=== PATIENT | male | born 1995 | race Caucasian/White ===

== ENCOUNTER 2016-10-21 23:38 | Emergency (ER) | payer OTHER ==
[2016-10-22] MEDS ORDERED: EPINEPHrine,Rac 2.25% NEB.SOL* 0.5 ML INH ONE (00:15)
--- NOTE | 2016-10-22 01:12 | ED ---
Laceration/Wound HPI - HPI Summary HPI Summary: Patient arrives with laceration to the right 5th finger MCP joint after cutting it on railing. Tetanus UTD. Patient notes minimal blood loss. Denies numbness or tingling. Patient has full ROM in finger, wrist and upper extremity. Denies fever or other illness. Patient denies previous injury to the area. - History of Current Complaint Stated Complaint: RIGHT PINKY LAC Time Seen by Provider: 10/22/16 00:09 Hx Obtained From: Patient Mechanism of Injury: Sharp/Blunt Trauma Onset/Duration: Sudden Onset Aggravating: Movement Alleviating: Compression Timing: Constant Onset Severity: Moderate Current Severity: Mild Pain Intensity: 0 Pain Scale Used: 0-10 Numeric - Allergy/Home Medications Allergies/Adverse Reactions: Allergies Allergy/AdvReac Type Severity Reaction Status Date / Time No Known Allergies Allergy Verified 12/24/13 14:04 PMH/Surg Hx/FS Hx/Imm Hx Previously Healthy: Yes Endocrine/Hematology History: Denies: Hx Diabetes Cardiovascular History: Denies: Hx Hypertension, Hx Pacemaker/ICD History: Denies: Hx Renal Disease Sensory History: Denies: Hx Hearing Aid Psychiatric History: Denies: Hx Panic Disorder - Surgical History Surgery Procedure, Year, and Place: 2 HERNIA ( AGE 7); MENISCUS RIGHT KNEE Infectious Disease History: No Infectious Disease History: Denies: Traveled Outside the [place] in Last 30 Days - Social History Occupation: Student Lives: Alone Alcohol Use: Occasionally Substance Use Type: Reports: Marijuana Smoking Status (MU): Never Smoked Tobacco Review of Systems Constitutional: Negative Eyes: Negative Cardiovascular: Negative Respiratory: Negative Positive: Arthralgia Positive: Other - 1 cm laceration to MCP joint on volar surface of 5th finger. Neurological: Negative Psychological: Normal All Other Systems Reviewed And Are Negative: Yes Physical Exam Triage Information Reviewed: Yes Vital Signs On Initial Exam: Initial Vitals Temp Pulse Resp BP Pulse Ox 98.5 F 66 18 143/77 98 10/21/16 23:40 10/21/16 23:40 10/21/16 23:40 10/21/16 23:40 10/21/16 23:40 Vital Signs Reviewed: Yes Appearance: Positive: Well-Appearing, No Pain Distress, Well-Nourished Skin: Positive: Other - 1 cm laceratio to volar surface of right MCP joint 5th finger Head/Face: Positive: Normal Head/Face Inspection Eyes: Positive: KENNY, Conjunctiva Clear Neck: Positive: Supple, No Lymphadenopathy Respiratory/Lung Sounds: Positive: Clear to Auscultation, Breath Sounds Present Cardiovascular: Positive: Normal Musculoskeletal: Positive: Normal, Strength/ROM Intact Neurological: Positive: Sensory/Motor Intact, Alert, Oriented to Person Place, Time, Facial Symmetry, Speech Normal Psychiatric: Positive: Normal - Дмитрий Coma Scale Coma Scale Total: 15 Procedures - Laceration/Wound Repair 1 Location: upper extremity Description: Linear Anesthesia: Local, 2.0%, Lido Betadine Prep?: No Laceration/Wound Explored: clean Closure: Single Layer - 4 sutures Suture Type: Nylon Layer Closure?: No Sterile Dressing Applied?: No Diagnostics - Vital Signs Vital Signs Temp Pulse Resp BP Pulse Ox 10/21/16 23:40 98.5 F 66 18 143/77 98 - Laboratory Lab Statement: Any lab studies that have been ordered have been reviewed, and results considered in the medical decision making process. Laceration Repair Course/Dx - Course Course Of Treatment: Patients wound cleaned and irrigated. Tetanus already UTD. 4 sutures placed over volar surface MCP joint of 5th finger of right hand. Patient tolerated well. No abx used. Placed 5th finger in splint. Return precautions given. - Differential Dx Differental Diagnoses: Abrasion, Avulsion, Laceration - Clinical Impression Provider Diagnoses: Laceration of right little finger Discharge - Discharge Plan Condition: Stable Disposition: HOME Patient Education Materials: Care For Your Stitches (ED) Referrals: [facility] TAYLOR Clarke [Primary Care Provider] - Additional Instructions: Sutures should be removed in 7 days. Keep splint on for 1 day. Keep bandaged for 1 day. You may then remove both and leave open to air. You may get the area wet with soap and water after 24 hours. If you develop signs of infection such as redness, drainage, swelling, warmth or fever - come back to ED immediately. Images - Images Hands: 1 - 1 inch laceration -
[2016-10-22 01:22] VITALS: BP 134/77
== END 2016-10-22 01:12 | disposition home or self-care (01) ==
LOC: ED 23:38
DX: S61.216A Laceration without foreign body of right little finger without damage to nail, initial encounter (principal); W45.8XXA Other foreign body or object entering through skin, initial encounter; Y93.9 Activity, unspecified; Y92.9 Unspecified place or not applicable
CPT/HCPCS: 12002; 99282

== ENCOUNTER → 2016-12-24 03:46 | Emergency (ER) | payer OTHER ==
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
[2016-12-24 05:40] VITALS: BP 102/40
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
== END | disposition home or self-care (01) ==
LOC: ED 03:46
DX: S01.81XA Laceration without foreign body of other part of head, initial encounter (principal); S09.90XA Unspecified injury of head, initial encounter; Y04.0XXA Assault by unarmed brawl or fight, initial encounter; Y92.9 Unspecified place or not applicable
CPT/HCPCS: 70486; 99283